=== PATIENT | female | born 1990 | race Caucasian/White ===

== ENCOUNTER 2020-01-16 10:25 | Outpatient (REF) | payer OTHER, SELFPAY ==
[2020-01-17 02:51] LABS: CT PCR NOT DETECTED (Not Detect.); NG PCR NOT DETECTED (Not Detect.)
[2020-01-17 08:22] LABS: Syphilis Screen Nonreactive (Nonreactive)
[2020-01-17 09:08] LABS: BV Int Neg Control Negative (Negative); BV Int Pos Control Positive (Positive)
[2020-01-18 09:02] LABS: HBc Num1 0.09 S/CO (0.00-0.79); Hepatitis B Core Antibody Nonreactive (Nonreactive); ~HepC Num1 0.53 S/CO (0.00-0.79); ~Hepatitis C Antibody Nonreactive (Nonreactive)
[2020-01-18 09:23] LABS: HIV AB/AG Nonreactive (Nonreactive); HIV Num 1 0.16 S/CO (0.00-0.99)
== END 2020-01-16 10:26 | disposition home or self-care (01) ==
LOC: HO.LAB 10:25
PROVIDERS: Visit Provider Advanced Practice Midwife
DX: Z20.2 Contact with and (suspected) exposure to infections with a predominantly sexual mode of transmission (principal); N39.0 Urinary tract infection, site not specified; R30.0 Dysuria; N92.6 Irregular menstruation, unspecified; Z30.09 Encounter for other general counseling and advice on contraception
CPT/HCPCS: 86704; 86780; 86803; 87389; 87480; 87491; 87510; 87591; 87660; 99202

== ENCOUNTER 2024-06-12 09:22 | Outpatient (AMB) | payer OTHER, MEDICAID, SELFPAY ==
--- NOTE | 2024-06-12 09:25 | A.OFFVIS_ITS ---
Vital Signs 06/12/24 09:32 Height 5 ft 10.34 in Weight 220 lb 7.396 oz BMI 31.3 BP 134/67 Blood Pressure Location Lt brachial Position Sitting Pulse 78 Intake Visit Reasons: reflux nausea vomitting abdominal pain Intake Note: Car presents in the office as a new patient for GERD, N/V and abdominal pains. CC: She states that she was having a lot of symptoms - she has a list of all the symptoms that she was having. She realized at a certain point that is was a GI issue - she self diagnosed herself with crohns. She states she changed her diet and most of her symptoms are gone. If she has a cheat meal then all of her symptoms come back. Allergies No Known Allergies [No Known Allergies*] Allergy (Unverified 06/12/24 09:32) HPI HPI reflux nausea vomitting abdominal pain: Details: HPI 34 YR OLD F here for assessment she has been living in [facility] for 1.5 yrs she has noted a number of sx she had noted palpitations, saw cardiology she had tests for celiac and thyroid, DM, and were negative Her sx include dizziness on standing hair falling out nausea freq urination cramps in feet blurred vision bloating sharp pain lower right abdomen diarrhea every day for 1 months but changed her diet and that seemed to help increased sweating she used to be on suboxone not now taking probiotics with some benefit ROS: Constitutional : No Weight loss, No Fever, No Chills ENT/Mouth : No sore throat, No Rhinorrhea Eyes: No Swelling, No Redness Cardiovascular : No Chest Pain, No SOB, No Edema Respiratory : No Cough, No Sputum, No Wheezing Gastrointestinal : see HPI Genitourinary : NO Dysuria, + Urinary Frequency, No Hematuria, No Urgency Musculoskeletal : + joint pain, No Myalgias, No Joint Swelling Skin : No Skin Lesions, No rash Neuro : No Weakness, No Numbness, No Dizziness, No Headache Psych : No Anxiety/Panic, No Depression Heme/Lymph: No Bruising, No Lymphadenopathy Endocrine : No Polyuria, No Polydipsia All other systems reviewed and are negative. Medical History depression ADD Surgical History no Family History she is adopted but one sister she knows of with POT syndrome Social History occ THC and alcohol use, ex drug abuse EXAM: GENERAL: The patient is well developed and nontoxic. VITAL SIGNS:see workflow HEENT: Nonicteric sclerae, PERRLA, EOMI. Oropharynx clear. Moist mucous membranes. Conjunctivae appear well perfused. No thyroid mass. CHEST: Chest wall is nontender. HEART: Regular rate and rhythm without murmurs. LUNGS: Clear to auscultation bilaterally. ABDOMEN: Soft, positive bowel sounds, nontender, no organomegaly.no flank tenderness SKIN: No rash, no excessive bruising, petechiae, or purpura. NEUROLOGIC: Cranial nerves II-XII intact without motor/sensory deficit. Psych: normal affect A/P: 1/ constellation of sx, involving different sx, more GI sx recently, ? dysautonomia, POTS, soft tissue d/o e.g SLE, mast cell d/o PLAN: 1/ labs as below, tryptase, RAST, HIV< Hep screen, fecal lactoferrin 2/ EGD, colo 3/ CT enterograph 4/ L + S BP with pulse PFSH Medical History Irregular menses Social History Alcohol intake: current Alcohol intake frequency: a few times a month Cigarettes Per Day: 5 Sexual orientation: Straight/Heterosexual Gender identity: Female Female Reproductive History Menstrual Age of Menarche: 18 Assessment & Plan Assessment & Plan (1) Arthralgia: Code(s): M25.50 - Pain in unspecified joint Category: Medical Plan: as above (2) Malnutrition: Code(s): E46 - Unspecified protein-calorie malnutrition Category: Medical Plan: as above (3) Abnormal bowel habits: Code(s): R19.8 - Other specified symptoms and signs involving the digestive system and abdomen Category: Medical Plan as above Orders: Orders Comprehensive Met. Panel Today E46 - Unspecified protein-calorie malnutrition, K75.81 - Nonalcoholic steatohepatitis (LOJA), M25.50 - Pain in unspecified joint, R19.8 - Other specified symptoms and signs involving the digestive system and abdomen Lyme IgG/IgM w/reflex to WB Today E46 - Unspecified protein-calorie malnutrition, M25.50 - Pain in unspecified joint, R19.8 - Other specified symptoms and signs involving the digestive system and abdomen Vitamin B12 and Folate Today E46 - Unspecified protein-calorie malnutrition, M25.50 - Pain in unspecified joint, R19.8 - Other specified symptoms and signs involving the digestive system and abdomen Vitamin B3 (Niacin) Today E46 - Unspecified protein-calorie malnutrition, M25.50 - Pain in unspecified joint, R19.8 - Other specified symptoms and signs involving the digestive system and abdomen Vitamin B5 (Pantothenic Acid) Today E46 - Unspecified protein-calorie malnutrition, M25.50 - Pain in unspecified joint, R19.8 - Other specified symptoms and signs involving the digestive system and abdomen Vitamin C Today E46 - Unspecified protein-calorie malnutrition, M25.50 - Pain in unspecified joint, R19.8 - Other specified symptoms and signs involving the digestive system and abdomen Vitamin D 25-OH Total Today E46 - Unspecified protein-calorie malnutrition, M25.50 - Pain in unspecified joint, R19.8 - Other specified symptoms and signs involving the digestive system and abdomen Vitamin K1 Today E46 - Unspecified protein-calorie malnutrition, M25.50 - Pain in unspecified joint, R19.8 - Other specified symptoms and signs involving the digestive system and abdomen Ferritin Today E46 - Unspecified protein-calorie malnutrition, M25.50 - Pain in unspecified joint, R19.8 - Other specified symptoms and signs involving the digestive system and abdomen DAV Reflex Titer and Pattern Today E46 - Unspecified protein-calorie malnutrition, M25.50 - Pain in unspecified joint, R19.8 - Other specified symptoms and signs involving the digestive system and abdomen, R79.82 - Elevated C-reactive protein (CRP) Immunoglobulins,IgG IgA IgM Today E46 - Unspecified protein-calorie malnutrition, M25.50 - Pain in unspecified joint, R19.8 - Other specified symptoms and signs involving the digestive system and abdomen H Pylori Breath Test Today E46 - Unspecified protein-calorie malnutrition, M25.50 - Pain in unspecified joint, R19.8 - Other specified symptoms and signs involving the digestive system and abdomen Rast Allergen Today E46 - Unspecified protein-calorie malnutrition, M25.50 - Pain in unspecified joint, R19.8 - Other specified symptoms and signs involving the digestive system and abdomen, Z91.018 - Allergy to other foods Transglutaminase IgA Today E46 - Unspecified protein-calorie malnutrition, M25.50 - Pain in unspecified joint, R19.8 - Other specified symptoms and signs involving the digestive system and abdomen Magnesium Today E46 - Unspecified protein-calorie malnutrition, M25.50 - Pain in unspecified joint, R19.8 - Other specified symptoms and signs involving the digestive system and abdomen Phosphorus Today E46 - Unspecified protein-calorie malnutrition, E83.52 - Hypercalcemia, M25.50 - Pain in unspecified joint, R19.8 - Other specified symptoms and signs involving the digestive system and abdomen HIV Ab/Ag Today E46 - Unspecified protein-calorie malnutrition, M25.50 - Pain in unspecified joint, R19.8 - Other specified symptoms and signs involving the digestive system and abdomen Cyclic Citrullinated Peptide Today M25.50 - Pain in unspecified joint, R19.8 - Other specified symptoms and signs involving the digestive system and abdomen Complete Blood Count Auto Diff Today E46 - Unspecified protein-calorie malnutrition, M25.50 - Pain in unspecified joint, R19.8 - Other specified symptoms and signs involving the digestive system and abdomen Vitamin A Today E46 - Unspecified protein-calorie malnutrition, M25.50 - Pain in unspecified joint, R19.8 - Other specified symptoms and signs involving the digestive system and abdomen Vitamin B1 Today E46 - Unspecified protein-calorie malnutrition, M25.50 - Pain in unspecified joint, R19.8 - Other specified symptoms and signs involving the digestive system and abdomen Vitamin B6 Today E46 - Unspecified protein-calorie malnutrition, M25.50 - Pain in unspecified joint, R19.8 - Other specified symptoms and signs involving the digestive system and abdomen Vitamin E Today E46 - Unspecified protein-calorie malnutrition, M25.50 - Pain in unspecified joint, R19.8 - Other specified symptoms and signs involving the digestive system and abdomen Zinc Today E46 - Unspecified protein-calorie malnutrition, M25.50 - Pain in unspecified joint, R19.8 - Other specified symptoms and signs involving the digestive system and abdomen Erythrocyte Sedimentation Rate Today E46 - Unspecified protein-calorie malnutrition, M25.50 - Pain in unspecified joint, R19.8 - Other specified symptoms and signs involving the digestive system and abdomen C Reactive Protein Today E46 - Unspecified protein-calorie malnutrition, M25.50 - Pain in unspecified joint, R19.8 - Other specified symptoms and signs involving the digestive system and abdomen Babesia IgG/IgM Today E46 - Unspecified protein-calorie malnutrition, M25.50 - Pain in unspecified joint, R19.8 - Other specified symptoms and signs involving the digestive system and abdomen Angiotensin Converting Enzyme Today E46 - Unspecified protein-calorie malnutrition, M25.50 - Pain in unspecified joint, R19.8 - Other specified symptoms and signs involving the digestive system and abdomen Hepatitis A,B,C Profile Today E46 - Unspecified protein-calorie malnutrition, M25.50 - Pain in unspecified joint, R19.8 - Other specified symptoms and signs involving the digestive system and abdomen Immunoglobulin E Today E46 - Unspecified protein-calorie malnutrition, M25.50 - Pain in unspecified joint, R19.8 - Other specified symptoms and signs involving the digestive system and abdomen Tryptase Today E46 - Unspecified protein-calorie malnutrition, M25.50 - Pain in unspecified joint, R19.7 - Diarrhea, unspecified, R19.8 - Other specified symptoms and signs involving the digestive system and abdomen Lactoferrin, Fecal, Quant. Today E46 - Unspecified protein-calorie malnutrition, K51.50 - Left sided colitis without complications, M25.50 - Pain in unspecified joint, R19.8 - Other specified symptoms and signs involving the digestive system and abdomen Creatine Kinase Total Today E46 - Unspecified protein-calorie malnutrition, M25.50 - Pain in unspecified joint, R19.8 - Other specified symptoms and signs involving the digestive system and abdomen CT enterography Today R19.8 - Other specified symptoms and signs involving the digestive system and abdomen Coding Level of Care Code New Pt Level 4 (67299) Diagnoses Arthralgia M25.50 Malnutrition E46 Abnormal bowel habits R19.8
[2024-06-12 09:32] VITALS: BP 134/67; PULSE 78; BMI 31.3
== END 2024-06-12 10:09 | disposition home or self-care (01) ==
LOC: HO.HGI 09:22
PROVIDERS: Visit Provider Internal Medicine Gastroenterology
DX: M25.50 Pain in unspecified joint (principal); E46 Unspecified protein-calorie malnutrition; R19.8 Other specified symptoms and signs involving the digestive system and abdomen
CPT/HCPCS: 99204

== ENCOUNTER → 2024-06-12 09:22 | Outpatient (BNVA) | payer OTHER, MEDICAID, SELFPAY | PROVIDERS: Visit Provider Internal Medicine Gastroenterology ==

== ENCOUNTER 2024-09-04 09:12 | Outpatient (REF) | payer MEDICAID, SELFPAY | END 2024-09-04 09:13 | disposition home or self-care (01) | LOC: HO.CT 09:12 | PROVIDERS: PCP Internal Medicine; Visit Provider Internal Medicine Gastroenterology | DX: Z13.89 Encounter for screening for other disorder (principal) ==

== ENCOUNTER 2024-09-15 08:39 | Outpatient (REF) | payer MEDICAID, SELFPAY ==
--- NOTE | ~2024-09-15 | CT_ITS ---
EXAMINATION: CT ABDOMEN PELVIS ENTEROGRAPHY WITHOUT IV CONTRAST HISTORY: R19.8 - Other specified symptoms and signs involving the digestive system... COMPARISON: There are no prior studies for available comparison. TECHNIQUE: CT scan of the abdomen and pelvis was performed following administration of 85 mL Omnipaque 350 using standard departmental protocol. Coronal and sagittal reformatted images were generated and reviewed. The patient was given low density oral contrast material for CT enterography. The patient experienced a contrast reaction consisting of hives. The patient was examined by the on-site radiologist and sent to the emergency room for further evaluation. This CT exam was performed with one or more of the following dose reduction techniques: automated exposure control, adjustment of the mA and/or kV according to patient size, use of iterative reconstruction technique. DLP: 598 mGy-cm FINDINGS: LOWER CHEST: The visualized lung bases are clear. There is no pleural effusion. CARDIOVASCULATURE: The heart is normal in size. There is no pericardial effusion. LIVER: The liver is normal in size and contour. There is a 2.7 x 1.8 cm hypodensity in the left lobe adjacent to the fissure for the ligamentum teres. This may represent a cyst or hemangioma. The hepatic and portal veins are patent. GALLBLADDER / BILE DUCTS: The gallbladder is unremarkable. There is no intra or extrahepatic biliary ductal dilatation. SPLEEN: The spleen is normal in size. No focal splenic lesion is identified. PANCREAS: The pancreas is unremarkable in appearance. ADRENAL GLANDS: Within normal limits. KIDNEYS/RETROPERITONEUM: No renal calculi are identified. There is no hydronephrosis. No renal masses are identified. LYMPH NODES: No abdominal or pelvic lymphadenopathy. VASCULATURE: The abdominal aorta is normal in caliber. MESENTERY/PERITONEUM: No free fluid. No masses. There is no free intraperitoneal gas. STOMACH: The stomach is unremarkable. SMALL BOWEL: The small bowel is normal in caliber. There is no abnormal wall thickening or mucosal hyperenhancement. A 10 mm disc shaped structure is noted in a small bowel loop in the midabdomen (series 3 image 162 and series 6, image 30). COLON: There is a large amount of stool throughout the colon. APPENDIX: Normal. URINARY BLADDER/PELVIC ORGANS: The urinary bladder is collapsed, limiting evaluation. The uterus and ovaries are unremarkable. BONES / SOFT TISSUES: No suspicious bony or soft tissue abnormalities. CT/CT enterography IMPRESSION: 1. 2.7 x 1.8 cm hypodensity in the left lobe of the liver which could represent a cyst or hemangioma. Ultrasound evaluation is suggested. 2. 10 mm disc shaped structure in a small bowel loop in the midabdomen which could represent an undigested medication capsule. Clinical correlation is recommended. 3. Large amount of stool throughout the colon. Otherwise unremarkable CT enterography examination. Electronically signed by: Martin Rashid MD 09/15/2024 11:01 AM EDT
[2024-09-15] MEDS: iohexoL 350 MG/ML 100 ML INFUS..BTL IV (10:46)
[2024-09-15] MEDS: Sorbitol/Mannit/Xanth Imaging 500 ML LIQUID 1500 ML PO (10:47)
== END 2024-09-15 08:40 | disposition home or self-care (01) ==
LOC: HO.CT 08:39
PROVIDERS: PCP Internal Medicine; Visit Provider Internal Medicine Gastroenterology
DX: R19.8 Other specified symptoms and signs involving the digestive system and abdomen (principal)
CPT/HCPCS: 74177; Q9967

== ENCOUNTER → 2024-09-15 08:41 | Outpatient (BNV) | payer MEDICAID, SELFPAY | PROVIDERS: PCP Internal Medicine; Visit Provider Radiology Diagnostic Radiology | DX: R19.5 Other fecal abnormalities (principal) | CPT/HCPCS: 74177 ==

== ENCOUNTER 2024-09-15 10:17 | Emergency (ER) | payer OTHER, SELFPAY ==
--- NOTE | 2024-09-15 10:31 | ED.ALLEREA ---
HPI - Allergic Reaction General Chief complaint: Allergic Reaction Stated complaint: Allergic reaction Time Seen by Provider: 09/15/24 10:23 Source: patient Mode of arrival: wheelchair Limitations: no limitations History of Present Illness ED Provider: rocco davis np HPI narrative: Patient is a 34-year-old female who presents to the emergency department coming from outpatient CT. At approximately 10:[address] of the abdomen and pelvis obtained with oral and IV contrast. She began developing pruritus to the hands and feet followed by small welts noted on her arms and her neck, with right periorbital swelling. She reports a mild chest pressure, and scratchy sensation to the throat. No known allergens prior to this. Has not previously had contrast. Related Data Home Medications ?Medication ?Instructions ?Recorded ?Confirmed Saccharomyces boulardii 250 mg 250 mg PO BID 06/12/24 capsule (Digest Probiotic (S.boulardii)) bupropion HCl 150 mg tablet,12 hr 150 mg PO BID 06/12/24 sustained-release dextroamphetamine-amphetamine 5 mg 5 mg PO DAILY 06/12/24 tablet (Adderall) medroxyprogesterone 150 mg/mL mg IM 06/12/24 intramuscular syringe Previous Rx's ?Medication ?Instructions ?Recorded sodium,potassium,mag sulfates 17.5 See Rx Instructions PO .COMPLEX 06/12/24 gram-3.13 gram-1.6 gram oral soln #354 mL (Suprep Bowel Prep Kit) loratadine 10 mg tablet (Claritin) 10 mg PO DAILY #14 tabs 09/15/24 Allergies Allergy/AdvReac Type Severity Reaction Status Date / Time iohexol (From Omnipaque) AdvReac Hives Verified 09/15/24 11:14 Review of Systems Review of Systems: Yes all other systems are reviewed and are negative PMFSH Past Medical History Attestation statement: The following information was validated with the patient. Source: old records reviewed Medical History Irregular menses Social History Social History Alcohol intake: current Alcohol intake frequency: holidays/special occasions only Alcohol type: beer and hard liquor Cigarettes Per Day: 5 Smoked in Last 30 Days: Yes Use of substances other than those prescribed or required for medical reasons: Yes Substance Use Type: Marijuana Substance Use Frequency: Daily Do you have a plan to hurt others: No Plan Patient : No Sexual orientation: Straight/Heterosexual Gender identity: Female Physical Exam ED Vital Signs: Vital Signs - 24 hr 09/15/24 11:12 09/15/24 11:12 Temperature 97.7 F 97.7 F Pulse Rate 56 74 Respiratory Rate 14 16 Blood Pressure 128/70 111/78 Pulse Oximetry 99 97 Oxygen Delivery Method Room Air Room Air BMI result Body Mass Index 28.0 Appearance: Alert.?Oriented to person, place and time. No acute distress.?Normal affect. Eyes: Pupils equal, round and reactive to light.? Left periorbital swelling. ENT: Pharynx normal.? Uvula midline. No angioedema/ swelling of the tongue/face. ? Neck: Normal inspection.? Neck supple.??No adenopathy CVS: Heart sounds normal. Normal heart rate and rhythm.? Pulses normal.?? Respiratory: No respiratory distress.? Lung sounds clear to auscultation bilaterally?? Abdomen: Soft and non-tender. Normoactive bowel sounds. Skin: Skin warm and dry.? Normal skin color.? Sparse Urticaria to bilateral upper extremities neck and torso Extremities: No lower extremity edema.? No calf ttp? Neuro: Moves all extremities spontaneously. Sensation intact bilaterally. No focal neuro deficits. Ambulates with normal steady gait. Course Reevaluation(s) Reevaluation #1: Patient is subjectively feeling better, urticaria has decreased, has a mild left periorbital edema at this time. She is not interested in receiving IV medications, she would like to be discharged home. She has no airway compromise. We will be driving herself home so would not advise use of oral Benadryl at this time. She is however amenable to taking oral medication will be provided with a dose of prednisone and non sedating antihistamine, somewhat short course of prednisone to pharmacy. Given strict return precautions. All questions answered Time: 11:33 Medical Decision Making Medical Decision Making MDM Narrative: Patient is a 34-year-old female who presents emergency department for evaluation with concern for allergic reaction after receiving IV and oral contrast for outpatient CT of the abdomen and pelvis as per HPI. She has mild left periorbital edema, sparse urticaria to the bilateral upper extremities and neck. No recent infectious symptoms to suggest alternative etiology or sepsis. Examination consistent with suspected contrast Allergic reaction. Not anaphylaxis. Patient well appearing in no acute distress, breathing easily without throat symptoms. Speaking full sentences, and handling secretions without difficulty. There is no obvious threat to airway. Lungs are CTA in all [place].? No signs of angioedema, stridor, airway compromise, anaphylaxis or anaphylactic shock. Not c/w SSSS/ TEN/Erythema multiforme/ [place]. Given history and physical exam, Will watch and observe outpatient to receive Solu-Medrol, Benadryl, Pepcid. If patient continues to improve and subsequently asymptomatic, will discharge with return precautions. Patient understands and agrees with plan Differential Diagnosis Differential Diagnoses: The differential diagnosis associated with the presentation includes (See narrative above) Admission/Observation Consideration of admission/observation: Escalation of care including admission/observation considered Discharge Plan Discharge Clinical Impression: Allergic reaction Qualifiers: Encounter type: initial encounter Qualified Code(s): T78.40XA - Allergy, unspecified, initial encounter Patient Disposition: Home, Self-Care Instructions: General Allergic Reaction (ED) Additional Instructions: You were evaluated in the emergency department today with concern for allergic reaction to the contrast dye that you received today. You declined having IV medications while in the emergency department. You should not have signs of anaphylaxis/angioedema/airway compromising which is reassuring. You have been given a dose of prednisone as well as an antihistamine, non sedating, orally. Please take Claritin daily over the next few days. Return with any new or worsening symptoms or concerns which include but is not limited to difficulty breathing, shortness of breath, hives, swelling, throat closing sensation, chest pain, shortness of breath. Prescriptions: New loratadine [Claritin] 10 mg tablet 10 mg PO DAILY Qty: 14 0RF No Action bupropion HCl 150 mg tablet sustained-release 12 hr 150 mg PO BID dextroamphetamine-amphetamine [Adderall] 5 mg tablet 5 mg PO DAILY medroxyprogesterone 150 mg/mL syringe IM Saccharomyces boulardii [Digest Probiotic (S.boulardii)] 250 mg capsule 250 mg PO BID sodium,potassium,mag sulfates [Suprep Bowel Prep Kit] 17.5-3.13-1.6 gram recon soln See Rx Instructions PO .COMPLEX Qty: 354 0RF Rx Instructions: DILUTE; drink 1/2 at 6-8 pm and half at 11 PM- 1AM Referrals: Physician,Unknown J [Primary Care Provider, Medical] Print Language: Yi
[2024-09-15 11:12] VITALS: BP 111/78; BP 128/70; PULSE 56; PULSE 74; RESP 14; RESP 16; TEMP 36.5; O2SAT 97; O2SAT 99; BMI 28.0
--- NOTE | 2024-09-15 11:48 | PC.NURSE ---
Patient presents to ED after allergic reaction to contrast dye. Patient denies SOB, pain, patient able to speech in full sentences, Redness noted in palms and feet and left eye was swollen symptoms seem to be reducing. Patient is expressing desire to leave. Provider aware. Patient refused IV medications but is willing to take PO medications. VSS and up to date
[2024-09-15 11:49] VITALS: BP 128/70; PULSE 56; RESP 14; TEMP 36.5; O2SAT 99
== END 2024-09-15 12:16 | disposition home or self-care (01) ==
PROVIDERS: Emergency Provider Emergency Medicine
DX: L29.89 Other pruritus (principal); T50.8X5A Adverse effect of diagnostic agents, initial encounter; Y92.9 Unspecified place or not applicable
CPT/HCPCS: 99283; 99284

== ENCOUNTER 2024-10-29 13:05 | Outpatient (REF) | payer MEDICAID, SELFPAY ==
--- NOTE | ~2024-10-29 | MR_ITS ---
EXAMINATION: MR ABDOMEN WITHOUT THEN WITH IV CONTRAST HISTORY: K76.9 - Liver disease, unspecified COMPARISON: Correlation is made with a CT of the abdomen and pelvis dated 09/15/2024. TECHNIQUE: Axial in and out of phase T1-weighted gradient echo, axial diffusion weighted, and axial and coronal HASTE T2 with fat saturation images were obtained through the abdomen. Subsequently, fat suppressed axial and coronal T1-weighted images were obtained after the intravenous administration of 8.5 mL Gadavist. FINDINGS: Liver: There is a 2.2 x 1.8 cm area of mildly increased T2 signal intensity in segment IV of the liver, adjacent to the fissure for the ligamentum teres. This area demonstrates diffuse loss of signal intensity on opposed phase imaging and mild progressive enhancement over time. Findings likely represent focal steatosis. Greater enhancement would be expected in focal nodular hyperplasia or an adenoma. The hepatic and portal veins are patent. There is no intrahepatic biliary dilatation. Gallbladder/biliary tree: There is cholelithiasis. The common bile duct is normal in caliber. No intraluminal filling defects are identified to suggest choledocholithiasis. Spleen: The spleen is unremarkable. Pancreas: The pancreas is unremarkable. There is no enhancing pancreatic mass. The pancreatic duct is normal in caliber. Adrenals: The adrenal glands are unremarkable. Kidneys: The kidneys are unremarkable. There is no hydronephrosis. Lymph nodes: There is no retroperitoneal lymphadenopathy in the upper abdomen. Fluid: There is no ascites in the upper abdomen. Visualized bowel: The visualized small and large bowel loops are unremarkable in appearance. Visualized bones: The visualized bones demonstrate normal marrow signal intensity. MR/MR abdomen wo/w con IMPRESSION: 1. Findings are consistent with a 2.2 x 1.8 cm area of focal steatosis in segment IV of the liver corresponding to the abnormality noted on CT. 2. Cholelithiasis. Electronically signed by: Martin Rashid MD 10/30/2024 08:30 AM EDT
== END 2024-10-29 13:06 | disposition home or self-care (01) ==
LOC: HO.MRI 13:05
PROVIDERS: PCP Internal Medicine; Visit Provider Internal Medicine
DX: K76.9 Liver disease, unspecified (principal)
CPT/HCPCS: 74183; A9585

== ENCOUNTER → 2024-10-29 13:08 | Outpatient (BNV) | payer MEDICAID, SELFPAY | PROVIDERS: PCP Internal Medicine; Visit Provider Radiology Diagnostic Radiology | DX: K76.89 Other specified diseases of liver (principal); K80.20 Calculus of gallbladder without cholecystitis without obstruction | CPT/HCPCS: 74183 ==

== ENCOUNTER 2024-12-04 09:24 | Outpatient (AMB) | payer MEDICAID, SELFPAY ==
--- NOTE | 2024-12-04 09:24 | MHC.OFFVIS ---
Intake Visit Reasons: 4 mo f/u Intake Note: Car presents as a telehealth today. CC: states that her symptoms have gotten better. She has changed her diet and things have gotten a lot better. 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 Allergies iohexol (From Omnipaque) Adverse Reaction (Verified 12/04/24 09:25) Hives HPI HPI 4 mo f/u: Details: 34 YR OLD F called for f/u RECAP: she had been living in [facility] for 1.5 yrs she had noted a number of sx she had noted palpitations, saw cardiology she had tests for celiac and thyroid, DM, and were negative Her sx include dizziness on standing hair falling out nausea freq urination cramps in feet blurred vision bloating sharp pain lower right abdomen diarrhea every day for 1 months but changed her diet and that seemed to help increased sweating she used to be on suboxone not now taking probiotics with some benefit PLAN: 1/ labs as below, tryptase, RAST, HIV< Hep screen, fecal lactoferrin 2/ EGD, colo 3/ CT enterograph 4/ L + S BP with pulse RESULTS: CT 09/15/24: constipation liver lesion MRI 10/29/24: Gallstones focal fat and steatosis LABS: no results EGD/[place]-- not done L/S BP-- no change INTERIM: She is doing better stomach is improved, she changed her diet she has cut out cheese, processed foods, sweets she is eating less as well fried food can cause diarrhea she has been having bouts of upper abdo pain and RUQ pain there is a FH of gallstones EXAM: GENERAL: The patient is well developed and nontoxic. She looks relaxed. A/P: 1/ Sx suspicious for gallbladder related disease PLAN: 1/ Refer to surgery for possible CCY and further assessment COUNT INCLUDES THE [facility] Medical History Irregular menses Social History Alcohol intake: current Alcohol intake frequency: holidays/special occasions only Alcohol type: beer and hard liquor Cigarettes Per Day: 5 Substance Use Type: Marijuana Sexual orientation: Straight/Heterosexual Gender identity: Female Female Reproductive History Menstrual Age of Menarche: 18 Telehealth Telehealth Telehealth Platform: [facility] Location of provider rendering services: practice address Location of patient: address on file Patient Identification confirmed using: Name, : Yes Telehealth method: video Patient verbally consented to treatment: Yes Patient verbally consented to billing insurance company: Yes Patient informed of any privacy concerns related to visit: Yes Minutes spent on Phone/Video with Pt.: 11 Assessment & Plan Assessment & Plan (1) RUQ abdominal pain: Code(s): R10.11 - Right upper quadrant pain Category: Medical Plan: as above (2) Cholelithiasis: Code(s): K80.20 - Calculus of gallbladder without cholecystitis without obstruction Category: Medical Plan: as above Orders: Referrals General Surgery Referral K80.20 - Calculus of gallbladder without cholecystitis without obstruction Coding Level of Care Code Tele Est Pt Level 3 (55364) Diagnoses RUQ abdominal pain R10.11 Cholelithiasis K80.20
--- OUTSIDE RECORDS SUMMARY | 2024-12-04 10:07 | XMS_ITS | Clinical Summary ---
Author Organization [facility] Address [address] [place] [address] Phone Care Team Providers Care Brass Cleaner Name Role Phone Yane Stroud MD Primary Care Provider [phone] Allergies Active Allergy Reactions Criticality Noted Date Comments Iodinated Contrast Media 10/31/2024 Encounters Date Type Department Care Team Description 10/31/2024 3:03 AM EDT - 10/31/2024 9:53 AM EDT Emergency [facility] Emergency [address] [place] [address] Prema Negron MD Ziebro, John, MD Fall, initial encounter (Primary Dx); Heroin use; Chin laceration, initial encounter; Laceration of lower lip, initial encounter; Malocclusion of teeth; Closed fracture of nasal bone, initial encounter Discharge Disposition: Home or Self Care from Last 3 Months Social History Tobacco Use Types Packs/Day Years Used Date Smoking Tobacco: Never Smokeless Tobacco: Never Tobacco Cessation:Counseling Given: Not Answered Comments Unknown Sex and Gender Information Value Date Recorded Sex Assigned at Not on file Legal Sex Female 9:02 PM EST Gender Identity Not on file Sexual Orientation Not on file Obstetrics History Last Filed Vital Signs Vital Sign Reading Time Taken Comments Blood Pressure 111/69 10/31/2024 9:51 AM EDT Pulse 60 10/31/2024 9:51 AM EDT Temperature 37 C (98.6 F) 10/31/2024 6:51 AM EDT Respiratory Rate 19 10/31/2024 9:51 AM EDT Oxygen Saturation 100% 10/31/2024 9:51 AM EDT Inhaled Oxygen Concentration - - Weight 81.6 kg (180 lb) 10/31/2024 2:57 AM EDT Height 180.3 cm (5' 11 ) 10/31/2024 2:57 AM EDT Body Mass Index 25.1 10/31/2024 2:57 AM EDT Plan of Treatment Health Maintenance Due Date Last Done Comments DTaP,Tdap,and Td Vaccines (1 - Tdap) 06/13/2011 Hepatitis A Vaccines (1 of 2 - Risk 2-dose series) 06/13/2011 Hepatitis B Vaccines (1 of 3 - 19+ 3-dose series) 06/13/2011 Cervical Cancer Screening: P ap Smear 2013 HIV Screening 04/02/2023 Hepatitis C Screening 04/02/2023 Social Influencers of Health Screening 04/02/2023 Depression Screening 03/08/2024 Influenza Vaccine (#1) 2024 02/11/2024 COVID-19 Vaccine Completed 02/11/2024 HIB Vaccines Aged Out No longer eligi ble based on patient's age to complete this topic HPV Vaccines Aged Out No longer eligi ble based on patient's age to complete this topic IPV Vaccines Aged Out No longer eligi ble based on patient's age to complete this topic MMR Vaccines Aged Out No longer eligi ble based on patient's age to complete this topic Meningococcal ACWY Vaccine Aged Out N o longer eligible based on patient's age to complete this topic Meningococcal B Vaccine Aged Out No l onger eligible based on patient's age to complete this topic Pneumococcal Vaccine: Pediat rics (0 to 5 Years) and At-Risk Patients (6 to 49 Years) Aged Out No longer eligi ble based on patient's age to complete this topic RSV Immunization Patients Un messi 20 months Aged Out No longer eligible b ased on patient's age to complete this topic Varicella Vaccines Aged Out No longer eligible based on patient's age to complete this topic Procedures Procedure Name Priority Date/Time Associated Diagnosis Comments HC REPAIR WOUND LEVEL 1 Routine 10/31/2024 10:31 AM EDT RI REPAIR SPRFCL WD SIMPLE FACE/EARS/EYELIDS/NOSE /LIPS/MUC MEMB <= 2.5 CM Routine 10/31/2024 10:[address] HEAD WO CONTRAST STAT 10/31/2024 5 :[address] MAXILLOFACIAL WO CONTRAST STAT 10/31/2024 5:56 AM EDT POC , URINE DIAGNOSTIC STAT 10/31/2024 5:47 AM EDT from Last 3 Months Results * RI REPAIR SPRFCL WD SIMPLE FACE/EARS/EYELIDS/NOSE/LIPS/MUC MEMB <= 2.5 CM, HC REPAIR WOUND LEVEL1 (10/31/2024 10:31 AM EDT) Pedrito Mojica MD - 10/31/2024 10:31 AM EDT Pedrito Frederick MD 10/31/2024 10:32 AM Laceration Repair Date/Time: 10/31/2024 10:31 AM Performed by: Pedrito Frederick MD Authorized by: Prema Negron MD Consent: Consent obtained: Verbal Consent given by: Patient Risks, benefits, and alternatives were discussed: yes Risks discussed: Infection, need for additional repair, nerve damage, poor wound healing, poor cosmetic result, pain, retained foreign body, tendon damage and vascular damage Alternatives discussed: No treatment and delayed treatment Dafter protocol: Patient identity confirmed: Verbally with patient Anesthesia: Anesthesia method: Local infiltration Local anesthetic: Lidocaine 1% w/o epi Laceration details: Location: Lip Lip location: Lower exterior lip and lower interior lip Length (cm): 0.5 Depth (mm): 3 Pre-procedure details: Preparation: Imaging obtained to evaluate for foreign bodies Exploration: Limited defect created (wound extended): no Hemostasis achieved with: Direct pressure Imaging outcome: foreign body not noted Wound exploration: wound explored through full range of motion and entire depth of wound visualized Wound extent: areolar tissue violated Wound extent: no fascia violation noted, no foreign bodies/material noted, no muscle damage noted, no nerve damage noted, no tendon damage noted, no underlying fracture noted and no vascular damage noted Contaminated: no Treatment: Area cleansed with: Saline Amount of cleaning: Standard Irrigation solution: Sterile saline Irrigation volume: 20cc Irrigation method: Pressure wash Visualized foreign bodies/material removed: no Debridement: None Undermining: None Scar revision: no Skin repair: Repair method: Sutures Suture size: 6-0 Suture material: Nylon Suture technique: Simple interrupted Number of sutures: 2 Approximation: Approximation: Close Repair type: Repair type: Simple Post-procedure details: Dressing: Antibiotic ointment and adhesive bandage Procedure completion: Tolerated well, no immediate complications Prema Negron MD IN CLINIC/BEDSIDE ORDERABLES F inal Result * CT Head wo Contrast (10/31/2024 5:56 AM EDT) Anatomical Region Laterality Modality Head and Neck Computed Tomogra phy 10/31/2024 6:30 AM EDT Impressions 10/31/2024 6:30 AM EDT 1. No acute intracranial findings. 2. Nasal bone fracture partially visualized. This document has been electronically signed by: Jamar Matute MD on 10/31/2024 06:30:06 Narrative 10/31/2024 6:30 AM EDT INDICATION: Facial trauma CT head without contrast Comparison: None provided Findings: No intra-axial mass, midline shift, hydrocephalus, or acute hemorrhage. No significant atrophy-like change or white matter disease. There is no sinus or mastoid fluid. Mucoperiosteal thickening of the maxillary sinuses The orbits are unremarkable. Partially visualized nasal bone fracture. Procedure Note Jamar Matute MD - 10/31/2024 INDICATION: Facial trauma CT head without contrast Comparison: None provided Findings: No intra-axial mass, midline shift, hydrocephalus, or acute hemorrhage. No significant atrophy-like change or white matter disease. There is no sinus or mastoid fluid. Mucoperiosteal thickening of the maxillary sinuses The orbits are unremarkable. Partially visualized nasal bone fracture. IMPRESSION: 1. No acute intracranial findings. 2. Nasal bone fracture partially visualized. This document has been electronically signed by: Jamar Matute MD on 10/31/2024 06:30:06 Prema Ngeron MD IMG CT PROCEDURES Final Result * CT Maxillofacial wo Contrast (10/31/2024 5:56 AM EDT) Anatomical Region Laterality Modality Head and Neck Computed Tomogra phy 10/31/2024 6:24 AM EDT Impressions 10/31/2024 6:24 AM EDT Mildly comminuted nasal bone fracture. No additional facial bone fracture. This document has been electronically signed by: Jamar Matute MD on 10/31/2024 06:24:38 Narrative 10/31/2024 6:24 AM EDT INDICATION: facial trauma, c/f nasal fracture and maxillary fracture CT maxillofacial without contrast Comparison: None provided Findings: Mildly comminuted nasal bone fracture with surrounding edema. No additional facial bone fracture. Temporomandibular joints are intact. There is mucoperiosteal thickening of the iuws-[id number]-efls-right maxillary sinus. Orbital contents within normal limits. Visualized intracranial contents are within normal limits. No foreign bodies. Procedure Note Jamar Matute MD - 10/31/2024 INDICATION: facial trauma, c/f nasal fracture and maxillary fracture CT maxillofacial without contrast Comparison: None provided Findings: Mildly comminuted nasal bone fracture with surrounding edema. No additional facial bone fracture. Temporomandibular joints are intact. There is mucoperiosteal thickening of the ldys-[id number]-odrt-right maxillary sinus. Orbital contents within normal limits. Visualized intracranial contents are within normal limits. No foreign bodies. IMPRESSION: Mildly comminuted nasal bone fracture. No additional facial bonefracture. This document has been electronically signed by: Jamar Matute MD on 10/31/2024 06:24:38 Prema Negron MD IMG CT PROCEDURES Final Result * POC , urine manually resulted (10/31/2024 5:47 AM EDT) Urine Urine specimen obtained by clean catch procedure / Unknown 10/31/2024 5:47 AM EDT us Prema Negron MD POINT OF CARE TEST ENTER/EDIT ORDERABLES Edited Result - Final from Last 3 Months Insurance [facility] [employer] Care Teams Brass Cleaner Relationship Specialty Start Date End Date Yane Stroud MD [address] [place] [id number] PCP - General Internal Medicine 10/31/24
== END 2024-12-04 11:51 | disposition home or self-care (01) ==
LOC: HO.HGI 09:24
PROVIDERS: PCP Internal Medicine; Visit Provider Internal Medicine Gastroenterology
DX: R10.11 Right upper quadrant pain (principal); K80.20 Calculus of gallbladder without cholecystitis without obstruction
CPT/HCPCS: 99213

== ENCOUNTER 2025-01-10 11:32 | Outpatient (AMB) | payer OTHER, SELFPAY ==
--- NOTE | 2025-01-10 11:33 | A.OFFVIS_ITS ---
Vital Signs 01/10/25 11:40 Height 5 ft 11 in Weight 173 lb 4 oz BMI 24.2 BP 127/79 Blood Pressure Location Rt brachial Position Sitting Pulse 97 Intake Visit Reasons: Calculus of gallbladder Intake Note: This patient was referred by for an assessment for Calculus of gallbladder. Pt c/o; Onset 1 week, RUQ pain radiates towards back, reports significant weight loss, reports dull epigastric pain, reports postprandial pain, reports bloating and diarrhea, reports feeling fatigue, reports she was prescribed Pantoprazole by it has been effective but the dull pain is still persistent. 09/15/24: Enterography CT 10/29/24:Abd MRI Quality Assurance Inspector Required: No Accompanied by: Self / Same As Patient Allergies iohexol (From Omnipaque) Adverse Reaction (Verified 01/10/25 11:40) Hives HPI HPI Calculus of gallbladder: Details: [age] year old female referred for gallstones. She had an MRI done for question of liver disease last October,. This showed incidental findings of gallstones. She had a CAT scan done last September, and this did not show the gallstones at that time. She says that she initially had these studies done because of a multiple complaints. She says her hair was falling out many months ago. She says that had alternating diarrhea and constipation. She says that at that time, she seemed to be tired easily. She says she thought that she had low energy and felt that she may have been losing weight. She also has had this vague abdominal pain which she points to as the epigastric area as well as the entire upper abdomen on both sides. She has never had any abdominal surgeries in the past. She was seen by the meter readers supervisor. She had been planned to undergo endoscopy and colonoscopy but she was referred to ne 1st because of her gallstones. She does state that she has been more careful with her diet and feels that her symptoms have improved. [facility] Medical History Gallstones Irregular menses Surgical History History of tonsillectomy Social History (Reviewed 01/10/25 @ 11:42 by Kiesha Bhakta [facility] Alcohol intake: current Alcohol intake frequency: holidays/special occasions only Alcohol type: beer and hard liquor Cigarettes Per Day: 5 Substance Use Type: Marijuana Sexual orientation: Straight/Heterosexual Gender identity: Female Female Reproductive History Menstrual Age of Menarche: 18 Review of Systems Const Denies chills and Denies fever(s) Card Denies chest pain, Denies dyspnea and Denies dyspnea on exertion Resp Denies cough, Denies dyspnea and Denies dyspnea on exertion GI Denies hematochezia and Denies change in bowel habits Denies hematuria Musc Denies back pain and Denies limited range of motion Neuro Denies focal weakness and Denies convulsions Psych Denies depression and Denies mood swings Physical Exam Vital Signs: Last Vital Signs Pulse 97 01/10/25 11:40 BP 127/79 01/10/25 11:40 BMI result Body Mass Index 24.2 Const General: comfortable and no acute distress Orientation/consciousness: patient oriented x3 Neck Neck: Yes no lymphadenopathy Resp Auscultation: clear to auscultation bilaterally Cardio Rhythm: regular rhythm GI Palpation (GI): Soft to palpation, nontender and no guarding Neuro General: patient oriented x3 Assessment & Plan Assessment & Plan (1) Gallstones: Code(s): K80.20 - Calculus of gallbladder without cholecystitis without obstruction Category: Medical Plan: She presents with multiple complaints and she also mentions that she has this epigastric and upper abdominal pain periodically. I am uncertain if this is secondary to have gallstones. She denies significant right upper quadrant pain and tenderness. Current exam is benign I therefore explained to her that in view of the nonspecific nature of her overall constellation of symptoms, I would recommend that she proceed with GI workup with endoscopy and colonoscopy. She did state that she does not need to have cholecystectomy, she would like to really avoid this. I did tell her that if GI workup is unremarkable and there is no other etiology, we can go ahead and proceed with cholecystectomy although there is no guarantee that this will resolve all her problems. I will see her again in the office in about 2 months. We we will help her with a follow up with Gastroenterology. She understands the plan well and says she is comfortable with this Coding Level of Care Code New Pt Level 3 (08963) Diagnoses Gallstones K80.20
[2025-01-10 11:40] VITALS: BP 127/79; PULSE 97; BMI 24.2
== END 2025-01-10 12:23 | disposition home or self-care (01) ==
LOC: HO.HGS 11:33
PROVIDERS: PCP Internal Medicine; Visit Provider Surgery
DX: K80.20 Calculus of gallbladder without cholecystitis without obstruction (principal)
CPT/HCPCS: 99203

== ENCOUNTER → 2025-01-10 11:32 | Outpatient (BNVA) | payer OTHER, SELFPAY | PROVIDERS: PCP Internal Medicine; Visit Provider Surgery | DX: K80.20 Calculus of gallbladder without cholecystitis without obstruction (principal) | CPT/HCPCS: 99202 ==